=== PATIENT | male | born 1940 | race Caucasian/White ===

== ENCOUNTER 2019-05-09 14:22 | Inpatient (IN) | payer MEDICARE, BC ==
[~2019-05-09] VITALS: Ht 175.3 cm; Wt 87.1 kg
[2019-05-09 17:01] VITALS: BP 155/77
[2019-05-09] MEDS ORDERED: FLAX10003 PO (17:26)
[2019-05-09] MEDS ORDERED: LISI-607 PO (17:26)
[2019-05-09] MEDS ORDERED: GLIM2TAB2 PO (17:26)
[2019-05-09] MEDS ORDERED: VIT1CAPS44 PO (17:26)
[2019-05-09] MEDS ORDERED: CHOL400D16 PO (17:26)
[2019-05-09] MEDS ORDERED: MULT-1169 PO (17:26)
[2019-05-09] MEDS ORDERED: UBID100C13 PO (17:26)
[2019-05-09] MEDS ORDERED: RED600TA PO (17:26)
[2019-05-09] MEDS ORDERED: METF-440 PO (17:26)
[2019-05-09] MEDS ORDERED: AMLO5TAB9 PO (17:26)
[2019-05-09] MEDS ORDERED: ASPI325T39 PO (17:26)
[2019-05-09] MEDS ORDERED: DEXTROSE 50% 50 ML DISP.SYRIN IV PRN (17:45)
--- NOTE | 2019-05-09 19:30 | NUR ---
PATIENT RECEIVED IN BED. ALERT AND ORIENTED X 2-3. CONFUSED AND FORGETFUL. NO C/O PAIN OR SOB AT THIS TIME. CONTACTED MD HEAD FOR INCREASED BP OF 165/90. MD HAVE NO NEW ORDERS AT THIS TIME. MONITOR FOR Q4H. RASH OF LEFT ROA NOTED, AN WOUND CONSULT ORDERED. CALL LIGHT AND FREQUENTLY USED TIMES WITHIN REACH. WILL CONTINUE MONITOR.
[2019-05-09 19:53] VITALS: BP 165/90
[2019-05-09] MEDS: INSULIN REGULAR, HUMAN 300 UNIT/3 ML VIAL SQ PRN (20:58)
[2019-05-09] MEDS: BLOOD SUGAR DIAGNOSTIC 1 EACH STRIP VI SCH (21:00)
[2019-05-09 23:36] VITALS: BP 162/75
[2019-05-10 04:55] VITALS: BP 150/76
[2019-05-10] MEDS: BLOOD SUGAR DIAGNOSTIC 1 EACH STRIP VI SCH ×4 (06:31→21:09)
--- NOTE | 2019-05-10 06:32 | NUR ---
BP elevated,but stable during this shift. Will endorse to oncoming shift accordingly.
[2019-05-10 07:57] VITALS: BP 124/71
[2019-05-10] MEDS: CHOLECALCIFEROL 1,000 UNIT TABLET PO SCH (09:47)
[2019-05-10] MEDS: AMLODIPINE 5 MG TABLET PO SCH (09:47)
[2019-05-10] MEDS: METFORMIN HCL 500 MG TABLET PO SCH ×2 (09:47→18:51)
[2019-05-10] MEDS: MULTIVIT, IRON, MIN NO. 8, FA TABLET PO SCH (09:48)
[2019-05-10] MEDS: GLIMEPIRIDE 2 MG TABLET PO SCH ×2 (09:48→18:49)
[2019-05-10] MEDS: LISINOPRIL 5 MG TABLET PO SCH (09:48)
[2019-05-10] MEDS: ASPIRIN 325 MG TABLET PO SCH (09:48)
--- NOTE | 2019-05-10 12:07 | NUR ---
WOUND CARE CONSULT: PT PRESENTS WITH DRY SKIN TO LOWER LEGS, DRY SCRATCH TO RT LOWER LEG AND RESOLVED RASH TO LEFT BUTTOCK, PRESENT ON ADMISSION. PT IS INCONTINENT AT TIMES. RECOMMENDATIONS MADE FOR SKIN PROTECTION AND CARE. DISCUSSED WITH NURSING STAFF. WILL SEE PRN. DUQUE IN AGREEMENT WITH PLAN OF CARE. CURRENT CRISTÓBAL SCORE IS 14. Addendum: 05/10/19 at 1210 by LYN GUERRERO RN Amended: Links added.
[2019-05-10 15:55] VITALS: BP 94/19
--- NOTE | 2019-05-10 15:57 | NUR ---
INTERDISCIPLINARY TEAM CONFERENCE
[2019-05-10] MEDS: INSULIN REGULAR, HUMAN 300 UNIT/3 ML VIAL SQ PRN (18:51)
[2019-05-10] MEDS: MINERAL OIL/PETROLATUM,WHITE 57 GM TUBE TOP SCH (18:54)
--- NOTE | 2019-05-10 19:40 | NUR ---
Patient received in bed, AAO x3. Not in acute distress or SOB. Able to make needs known. On room air. VS stable. No complain of pain at this time. Physical assessment done. Fall prevention observed. Safety measures maintained. Bed in low and lock position, alarm on, side rails up x2 for safety. Educated patient to use call light. Call light and frequently used items within reach. Continue to monitor.
[2019-05-10 22:00] VITALS: BP 111/71
--- NOTE | 2019-05-11 04:47 | NUR ---
Patient was stable during the shift and had a good sleep last night. Not in acute distress or SOB. On room air. VS checked, stable. No complain of pain. Accucheck @2100 BS: 100, no needed for coverage by insulin based on sliding scale. All needs attended promptly. Physical assessment done. Fall prevention observed. Safety measures maintained. Bed in low and lock position, alarm on, side rails up x2 for safety. Call light and frequently used items within reach. Continue to monitor and will endorse to the day shift nurse accordingly.
[2019-05-11 05:50] VITALS: BP 121/71
[2019-05-11] MEDS: BLOOD SUGAR DIAGNOSTIC 1 EACH STRIP VI SCH ×4 (06:44→20:40)
[2019-05-11 07:48] LABS: CARBON DIOXIDE 27 mmol/L (21-32); CHLORIDE 103 mmol/L (98-107); CREATININE 1.1 mg/dL (0.6-1.3); GLUCOSE 110 mg/dL (74-106); POTASSIUM 3.6 mmol/L (3.5-5.1); UREA NITROGEN, BLOOD 22 mg/dL (7-18)
[2019-05-11 08:00] VITALS: BP 151/71
[2019-05-11] MEDS: GLIMEPIRIDE 2 MG TABLET PO SCH ×2 (09:38→17:16)
[2019-05-11] MEDS: METFORMIN HCL 500 MG TABLET PO SCH ×2 (09:38→17:16)
[2019-05-11] MEDS: CHOLECALCIFEROL 1,000 UNIT TABLET PO SCH (09:38)
[2019-05-11] MEDS: AMLODIPINE 5 MG TABLET PO SCH (09:38)
[2019-05-11] MEDS: LISINOPRIL 5 MG TABLET PO SCH (09:39)
[2019-05-11] MEDS: MULTIVIT, IRON, MIN NO. 8, FA TABLET PO SCH (09:39)
[2019-05-11] MEDS: ASPIRIN 325 MG TABLET PO SCH (09:40)
[2019-05-11] MEDS: MINERAL OIL/PETROLATUM,WHITE 57 GM TUBE TOP SCH (09:40)
[2019-05-11 16:48] VITALS: BP 116/64
[2019-05-11 19:38] VITALS: BP 140/72
[2019-05-11] MEDS: INSULIN REGULAR, HUMAN 300 UNIT/3 ML VIAL SQ PRN (20:37)
[2019-05-12 04:58] VITALS: BP 142/76
--- NOTE | 2019-05-12 05:13 | NUR ---
Patient was stable during the shift and had a good sleep last night. Not in acute distress or SOB. On room air. VS checked, stable. No complain of pain. Accucheck @2100 BS: 150, covered by 2 units insulin based on sliding scale. All needs attended promptly. Physical assessment done. Fall prevention observed. Safety measures maintained. Bed in low and lock position, alarm on, side rails up x2 for safety. Call light and frequently used items within reach. Continue to monitor and will endorse to the day shift nurse accordingly.
[2019-05-12] MEDS: BLOOD SUGAR DIAGNOSTIC 1 EACH STRIP VI SCH ×4 (06:39→20:04)
[2019-05-12 08:43] VITALS: BP 121/68
[2019-05-12] MEDS: CHOLECALCIFEROL 1,000 UNIT TABLET PO SCH (08:57)
[2019-05-12] MEDS: AMLODIPINE 5 MG TABLET PO SCH (08:57)
[2019-05-12] MEDS: METFORMIN HCL 500 MG TABLET PO SCH ×2 (08:57→17:08)
[2019-05-12] MEDS: GLIMEPIRIDE 2 MG TABLET PO SCH ×2 (08:57→17:08)
[2019-05-12] MEDS: LISINOPRIL 10 MG TABLET PO SCH (08:58)
[2019-05-12] MEDS: MULTIVIT, IRON, MIN NO. 8, FA TABLET PO SCH (08:58)
[2019-05-12] MEDS ORDERED: LISINOPRIL 5 MG TABLET PO SCH (09:00)
[2019-05-12] MEDS: MINERAL OIL/PETROLATUM,WHITE 57 GM TUBE TOP SCH (09:02)
[2019-05-12] MEDS: ASPIRIN 325 MG TABLET PO SCH (09:03)
--- NOTE | 2019-05-12 10:33 | NUR ---
INDIVIDUALIZE OVERALL PLAN OF CARE
[2019-05-12] MEDS: INSULIN REGULAR, HUMAN 300 UNIT/3 ML VIAL SQ PRN ×2 (11:43→20:03)
[2019-05-12 16:57] VITALS: BP 159/88
--- NOTE | 2019-05-12 19:38 | NUR ---
Patient received in bed, AAO x3, sometimes forgetful. Not in acute distress or SOB. Able to make needs known. On room air. VS stable. No complain of pain at this time. Physical assessment done. Fall prevention observed. Safety measures maintained. Bed in low and lock position, alarm on, side rails up x2 for safety. Educated patient to use call light. Call light and frequently used items within reach. Continue to monitor.
[2019-05-12 21:15] VITALS: BP 130/73
[2019-05-13 04:22] VITALS: BP 138/76
--- NOTE | 2019-05-13 04:28 | NUR ---
Patient was stable during the shift and had a good sleep last night. Not in acute distress or SOB. On room air. VS checked, stable. No complain of pain. Accucheck @2100 BS: 134, covered by 2 units insulin based on sliding scale. All needs attended promptly. Physical assessment done. Fall prevention observed. Safety measures maintained. Bed in low and lock position, alarm on, side rails up x2 for safety. Call light and frequently used items within reach. Continue to monitor and will endorse to the day shift nurse accordingly.
[2019-05-13] MEDS: BLOOD SUGAR DIAGNOSTIC 1 EACH STRIP VI SCH ×4 (06:30→21:02)
--- NOTE | 2019-05-13 07:46 | NUR ---
patient is in bed, asleep, no distress noted
[2019-05-13 08:00] VITALS: BP 124/66
[2019-05-13] MEDS: CHOLECALCIFEROL 1,000 UNIT TABLET PO SCH (08:29)
[2019-05-13] MEDS: METFORMIN HCL 500 MG TABLET PO SCH ×2 (08:29→17:25)
[2019-05-13] MEDS: GLIMEPIRIDE 2 MG TABLET PO SCH ×2 (08:29→17:25)
[2019-05-13] MEDS: MULTIVIT, IRON, MIN NO. 8, FA TABLET PO SCH (08:30)
[2019-05-13] MEDS: AMLODIPINE 5 MG TABLET PO SCH (08:30)
[2019-05-13] MEDS: ASPIRIN 325 MG TABLET PO SCH (08:30)
[2019-05-13] MEDS: LISINOPRIL 10 MG TABLET PO SCH (08:31)
[2019-05-13] MEDS: MINERAL OIL/PETROLATUM,WHITE 57 GM TUBE TOP SCH (08:32)
[2019-05-13] MEDS: Z GUARD REMEDY PASTE 57 GM TUBE TOP PRN (08:32)
[2019-05-13] MEDS: INSULIN REGULAR, HUMAN 300 UNIT/3 ML VIAL SQ PRN (12:30)
[2019-05-13 16:23] VITALS: BP 111/68
--- NOTE | 2019-05-13 19:26 | NUR ---
patient in bed, no changes noted during day, patient participated in PT, OT services, tolerated well
[2019-05-13 20:32] VITALS: BP 150/81
--- NOTE | 2019-05-14 04:20 | NUR ---
bedrest maintained. aaox3-4 compliant with meds.needs attended. VSS, Accucheck @ 2100 was 95. HS snacks given. Will monitor.Due meds given as scheduled. Incontinent of bowel and bladder. Kept clean and dry. Needs attended. Fall precautions maintained.
[2019-05-14 05:57] VITALS: BP 156/78
[2019-05-14] MEDS: BLOOD SUGAR DIAGNOSTIC 1 EACH STRIP VI SCH ×4 (06:38→20:34)
[2019-05-14 07:50] VITALS: BP 133/70
[2019-05-14] MEDS: GLIMEPIRIDE 2 MG TABLET PO SCH ×2 (08:23→16:10)
[2019-05-14] MEDS: METFORMIN HCL 500 MG TABLET PO SCH ×2 (08:23→16:10)
[2019-05-14] MEDS: AMLODIPINE 5 MG TABLET PO SCH (08:23)
[2019-05-14] MEDS: MULTIVIT, IRON, MIN NO. 8, FA TABLET PO SCH (08:23)
[2019-05-14] MEDS: ASPIRIN 325 MG TABLET PO SCH (08:23)
[2019-05-14] MEDS: LISINOPRIL 10 MG TABLET PO SCH (08:23)
[2019-05-14] MEDS: CHOLECALCIFEROL 1,000 UNIT TABLET PO SCH (08:24)
[2019-05-14] MEDS: MINERAL OIL/PETROLATUM,WHITE 57 GM TUBE TOP SCH (08:24)
[2019-05-14] MEDS: INSULIN REGULAR, HUMAN 300 UNIT/3 ML VIAL SQ PRN ×2 (11:24→20:35)
--- NOTE | 2019-05-14 14:16 | NUR ---
Patient blood sugar 226 before lunch. sliding insulin 4units humulin R given. aware. advise if surfacing machine operator can adjust diet. Government Relations Analyst aware. Change diet from CCHO 60gm to 45gm diet. Patient no complaint of pain/discomfort noted. will continue monitor
--- NOTE | 2019-05-14 14:27 | NUR ---
Patient requesting up on bed to wheelchair during meals. Up to bathroom for BM and urine.
[2019-05-14 15:46] VITALS: BP 116/69
[2019-05-14 20:11] VITALS: BP 145/83
--- NOTE | 2019-05-14 20:47 | NUR ---
Received pt resting in bed. AAO x2-3. No acute distress noted. Denies pain/ discomfort. Blood sugar of 198, insulin coverage given as ordered. Safety measures maintained. Call light and personal belongings within reach. Will continue to monitor.
[2019-05-15 06:11] VITALS: BP 153/78
[2019-05-15] MEDS: BLOOD SUGAR DIAGNOSTIC 1 EACH STRIP VI SCH ×4 (06:43→20:57)
--- NOTE | 2019-05-15 07:30 | NUR ---
Received patient in room awake in NO acute distress. Pt. is stable. No distress noted. S&Ox 2-3 with episodes of forgetfulness noted. Call light at bed side, safety measures in place and will continue with care.
[2019-05-15 07:35] LABS: BASOPHILS % (AUTO) 0.5 % (0.0-2.0); EOSINOPHILS # (AUTO) 0.1 K/uL (0.0-0.7); EOSINOPHILS % (AUTO) 1.8 % (0.0-7.0); HEMATOCRIT 43.9 % (36.7-47.1); LYMPHOCYTES # (AUTO) 2.4 K/uL (20.0-40.0); LYMPHOCYTES % (AUTO) 33.5 % (20.5-51.5); MEAN CORPUSCULAR HEMOGLOBIN 30.3 uug (23.8-33.4); MEAN CORPUSCULAR HGB CONC 34 g/dL (32.5-36.3); MEAN CORPUSCULAR VOLUME 88.8 fL (73.0-96.2); MONOCYTES # (AUTO) 0.7 K/uL (2.0-10.0); MONOCYTES % (AUTO) 9.9 % (0.0-11.0); NEUTROPHILS # (AUTO) 3.8 K/uL (1.8-8.9); NEUTROPHILS % (AUTO) 54.3 % (38.5-71.5); PLATELET COUNT (AUTO) 303 K/uL (152-348); RED BLOOD CELL COUNT(AUTO) 4.94 MIL/uL (4.06-5.63); WHITE BLOOD COUNT (AUTO) 7.1 K/uL (3.6-10.2)
[2019-05-15 07:56] LABS: THYROID STIMULATING HORMONE 7.391 mIU/mL (0.358-3.740)
[2019-05-15 08:00] VITALS: BP 117/71
[2019-05-15 08:18] LABS: ALANINE AMINOTRANSFERASE 29 U/L (16-63); ALKALINE PHOSPHATASE 74 U/L (50-136); ASPARTATE AMINOTRANSFERASE 18 U/L (15-37); BILIRUBIN,TOTAL 0.5 mg/dL (0.2-1.0); CARBON DIOXIDE 26 mmol/L (21-32); CHLORIDE 104 mmol/L (98-107); CHOLESTEROL 192 mg/dL (<200); CREATININE 0.9 mg/dL (0.6-1.3); GLUCOSE 92 mg/dL (74-106); HDL CHOLESTEROL 40 mg/dL (40-60); MAGNESIUM 2.1 mg/dL (1.8-2.4); PHOSPHOROUS 3.4 mg/dL (2.5-4.9); POTASSIUM 3.8 mmol/L (3.5-5.1); TOTAL PROTEIN, SERUM 6.8 g/dL (6.4-8.2); TRIGLYCERIDES 139 MG/DL (30-150); UREA NITROGEN, BLOOD 16 mg/dL (7-18)
[2019-05-15] MEDS: CHOLECALCIFEROL 1,000 UNIT TABLET PO SCH (08:56)
[2019-05-15] MEDS: METFORMIN HCL 500 MG TABLET PO SCH ×2 (08:56→17:15)
[2019-05-15] MEDS: GLIMEPIRIDE 2 MG TABLET PO SCH ×2 (08:56→17:15)
[2019-05-15] MEDS: MULTIVIT, IRON, MIN NO. 8, FA TABLET PO SCH (08:56)
[2019-05-15] MEDS: ASPIRIN 325 MG TABLET PO SCH (08:56)
[2019-05-15] MEDS: LISINOPRIL 10 MG TABLET PO SCH (08:57)
[2019-05-15] MEDS: AMLODIPINE 5 MG TABLET PO SCH (08:59)
[2019-05-15] MEDS: MINERAL OIL/PETROLATUM,WHITE 57 GM TUBE TOP SCH (09:00)
--- NOTE | 2019-05-15 10:00 | NUR ---
pt offered shower during PT session d/t noted excess dry skin however pt refused at this time. Will inform OT for attempt at a later time if pt agreeable.
[2019-05-15 16:00] VITALS: BP 137/75
[2019-05-15] MEDS: INSULIN REGULAR, HUMAN 300 UNIT/3 ML VIAL SQ PRN (17:14)
--- NOTE | 2019-05-15 19:14 | NUR ---
Patient in stable condition, Vital signs taken and stable. Due medications administered as ordered and scheduled. Blood sugar checks done and administered insulin per sliding scale and tolerated well. Skin kept clean and dry. Needs attended, safety measures in place, call light left at bed side, endorsed to next shift and will continue with care.
--- NOTE | 2019-05-15 19:35 | NUR ---
Patient received in bed, AAO x3, sometimes forgetful. Not in acute distress or SOB. Able to make needs known. On room air. No complain of pain at this time. Physical assessment done. Fall prevention observed. Safety measures maintained. Bed in low and lock position, alarm on, side rails up x2 for safety. Educated patient to use call light. Call light and frequently used items within reach. Continue to monitor.
[2019-05-15 19:39] VITALS: BP 151/73
[2019-05-15] MEDS: CLONIDINE HCL 0.1 MG TABLET PO SCH (21:17)
--- NOTE | 2019-05-15 21:30 | NUR ---
Patient developed high BP: 167/89, HR: 82. No other symptoms presented. No PRN medication for BP. Contacted [facility] on-call. Received order of Clonidine 0.1 mg Q6HPRN for SBP> 160. Medication administered. Continue to monitor and will recheck the BP in half an hour.
--- NOTE | 2019-05-15 22:10 | NUR ---
Went to the patient' s room to recheck the BP, but patient was sleeping. Continue to monitor.
--- NOTE | 2019-05-16 04:58 | NUR ---
Patient was stable during the shift and had a good sleep last night. Not in acute distress or SOB. On room air. VS checked, stable. No complain of pain. Accucheck @2099 BS: 137, covered by 2 units insulin based on sliding scale. Emptied urinal multiple times. All needs attended promptly. Physical assessment done. Fall prevention observed. Safety measures maintained. Bed in low and lock position, alarm on, side rails up x2 for safety. Call light and frequently used items within reach. Continue to monitor and will endorse to the day shift nurse accordingly. Addendum: 05/16/19 at 0721 by KHADIJAH OZUNA RN Accucheck @2099 BS: 92 with no coverage. @629 BS: 88.
[2019-05-16 05:00] VITALS: BP 129/70
[2019-05-16] MEDS: BLOOD SUGAR DIAGNOSTIC 1 EACH STRIP VI SCH ×5 (06:55→20:55)
--- NOTE | 2019-05-16 07:37 | NUR ---
patient is in sleep, no distress noted, no sob, respirations are even and nonlabored
[2019-05-16 07:57] VITALS: BP 130/70
[2019-05-16] MEDS: CHOLECALCIFEROL 1,000 UNIT TABLET PO SCH (08:14)
[2019-05-16] MEDS: GLIMEPIRIDE 2 MG TABLET PO SCH ×2 (08:15→17:00)
[2019-05-16] MEDS: AMLODIPINE 5 MG TABLET PO SCH (08:15)
[2019-05-16] MEDS: ASPIRIN 325 MG TABLET PO SCH (08:15)
[2019-05-16] MEDS: METFORMIN HCL 500 MG TABLET PO SCH ×2 (08:15→17:00)
[2019-05-16] MEDS: LISINOPRIL 10 MG TABLET PO SCH (08:16)
[2019-05-16] MEDS: MULTIVIT, IRON, MIN NO. 8, FA TABLET PO SCH (08:16)
[2019-05-16] MEDS: MINERAL OIL/PETROLATUM,WHITE 57 GM TUBE TOP SCH (08:17)
[2019-05-16] MEDS: Z GUARD REMEDY PASTE 57 GM TUBE TOP PRN (08:43)
--- NOTE | 2019-05-16 10:01 | NUR ---
TSH reported to Dr Frankel
[2019-05-16] MEDS: INSULIN REGULAR, HUMAN 300 UNIT/3 ML VIAL SQ PRN ×2 (12:08→20:58)
--- NOTE | 2019-05-16 15:30 | NUR ---
pt returned BTB d/t fatigue post PT session. Possible need to incorporate rest in bed in between sitting sessions as pt was up in chair since 8am this morning. pt was assisted to bed shortly before PT session and upon PT session pt highly fatigued. Nursing to monitor pt in between therapy sessions and assist with positional changes as needed/appropriate.
[2019-05-16 19:40] VITALS: BP 146/76
--- NOTE | 2019-05-17 04:14 | NUR ---
Patient received in bed, AAO x2-3, sometimes forgetful. Not in acute distress or SOB. Able to make needs known. On room air. VS checked, stable. No complain of pain at this time. Patient was stable during the shift and had a good sleep last night. Accucheck @2100 BS: 140, covered by 2 units insulin based on sliding scale. All needs attended promptly. Physical assessment done. Fall prevention observed. Safety measures maintained. Bed in low and lock position, alarm on, side rails up x2 for safety. Call light and frequently used items within reach. Continue to monitor and will endorse to the day shift nurse accordingly.
[2019-05-17] MEDS: CLONIDINE HCL 0.1 MG TABLET PO SCH (05:41)
[2019-05-17 05:55] VITALS: BP 174/93
[2019-05-17] MEDS: BLOOD SUGAR DIAGNOSTIC 1 EACH STRIP VI SCH ×4 (06:40→20:40)
--- NOTE | 2019-05-17 07:11 | NUR ---
Patient developed high BP: 174/93, HR: 78. No other symptoms presented. No PRN medication for BP. Contacted [facility] on-call. Received order of Clonidine 0.1 mg Q6HPRN for SBP> 160. Medication administered. Recheck the BP:106/61. will endorse to to the day shift nurse.
[2019-05-17] MEDS: ASPIRIN 325 MG TABLET PO SCH (09:27)
[2019-05-17] MEDS: GLIMEPIRIDE 2 MG TABLET PO SCH ×2 (09:27→17:43)
[2019-05-17] MEDS: MULTIVIT, IRON, MIN NO. 8, FA TABLET PO SCH (09:27)
[2019-05-17] MEDS: LISINOPRIL 10 MG TABLET PO SCH (09:27)
[2019-05-17] MEDS: CHOLECALCIFEROL 1,000 UNIT TABLET PO SCH (09:28)
[2019-05-17] MEDS: AMLODIPINE 5 MG TABLET PO SCH (09:28)
[2019-05-17] MEDS: MINERAL OIL/PETROLATUM,WHITE 57 GM TUBE TOP SCH (09:29)
[2019-05-17] MEDS: METFORMIN HCL 500 MG TABLET PO SCH ×2 (10:02→17:43)
[2019-05-17] MEDS: INSULIN REGULAR, HUMAN 300 UNIT/3 ML VIAL SQ PRN (12:07)
[2019-05-17 15:55] VITALS: BP 94/52
--- NOTE | 2019-05-17 16:22 | NUR ---
INTERDISCIPLINARY TEAM CONFERENCE
--- NOTE | 2019-05-17 19:20 | NUR ---
Patient in stable condition; In No acute distress. No episodes of hypertension noted. VS stable. Needs met. safety measures in place, call light left at bed side, end of shift report given and will continue with care.
[2019-05-17 20:34] VITALS: BP 159/86
--- NOTE | 2019-05-18 04:23 | NUR ---
No acute events overnight, pt currently sleeping, denies any pain. No fever, no restlessness. bed alarm is on, call light within reach
[2019-05-18 05:53] VITALS: BP 134/70
[2019-05-18] MEDS: BLOOD SUGAR DIAGNOSTIC 1 EACH STRIP VI SCH ×3 (06:55→16:52)
[2019-05-18 07:30] VITALS: BP 135/82
--- NOTE | 2019-05-18 07:50 | NUR ---
Patient awake in bed, in NO acute distress. No complains of pain at this time. Call light left at bed side and will continue with care.
[2019-05-18] MEDS: MULTIVIT, IRON, MIN NO. 8, FA TABLET PO SCH (09:12)
[2019-05-18] MEDS: ASPIRIN 325 MG TABLET PO SCH (09:12)
[2019-05-18] MEDS: GLIMEPIRIDE 2 MG TABLET PO SCH ×2 (09:12→17:48)
[2019-05-18] MEDS: METFORMIN HCL 500 MG TABLET PO SCH ×2 (09:13→17:48)
[2019-05-18] MEDS: AMLODIPINE 5 MG TABLET PO SCH (09:13)
[2019-05-18] MEDS: CHOLECALCIFEROL 1,000 UNIT TABLET PO SCH (09:13)
[2019-05-18] MEDS: LISINOPRIL 10 MG TABLET PO SCH (09:13)
[2019-05-18] MEDS: MINERAL OIL/PETROLATUM,WHITE 57 GM TUBE TOP SCH (09:14)
[2019-05-18] MEDS: INSULIN REGULAR, HUMAN 300 UNIT/3 ML VIAL SQ PRN (12:28)
[2019-05-18 16:00] VITALS: BP 156/69
--- NOTE | 2019-05-18 19:25 | NUR ---
All due medications administered as ordered and scheduled. Blood sugar checked and stable for patient. No new change of condition noted. Needs met. safety needs attended, was here to visit and discussed care, and thanked for the care that was being provided. Call light left at bed side and will continue with care.
[2019-05-18 19:59] VITALS: BP 152/77
--- NOTE | 2019-05-18 22:24 | NUR ---
Received pt sitting in the wheelchair and watching tv. AAO x2-3. No acute distress noted. Denies pain/ discomfort. Pt is now back to bed. Safety measures maintained. Call light and personal belongings within reach. Will continue to monitor.
[2019-05-19 04:53] VITALS: BP 132/75
[2019-05-19 07:56] LABS: BASOPHILS % (AUTO) 0.7 % (0.0-2.0); EOSINOPHILS # (AUTO) 0.2 K/uL (0.0-0.7); EOSINOPHILS % (AUTO) 2.8 % (0.0-7.0); HEMATOCRIT 43.3 % (36.7-47.1); HEMOGLOBIN 14.6 g/dL (12.5-16.3); MEAN CORPUSCULAR HEMOGLOBIN 30.6 uug (23.8-33.4); MEAN CORPUSCULAR HGB CONC 34 g/dL (32.5-36.3); MEAN CORPUSCULAR VOLUME 90.7 fL (73.0-96.2); MONOCYTES # (AUTO) 0.6 K/uL (2.0-10.0); MONOCYTES % (AUTO) 8.9 % (0.0-11.0); NEUTROPHILS # (AUTO) 3.8 K/uL (1.8-8.9); NEUTROPHILS % (AUTO) 57.6 % (38.5-71.5); PLATELET COUNT (AUTO) 287 K/uL (152-348); RED BLOOD CELL COUNT(AUTO) 4.77 MIL/uL (4.06-5.63); WHITE BLOOD COUNT (AUTO) 6.7 K/uL (3.6-10.2)
[2019-05-19 08:00] VITALS: BP 125/75
[2019-05-19 08:10] LABS: ALANINE AMINOTRANSFERASE 77 U/L (16-63); ALKALINE PHOSPHATASE 81 U/L (50-136); ASPARTATE AMINOTRANSFERASE 45 U/L (15-37); BILIRUBIN,TOTAL 0.3 mg/dL (0.2-1.0); CARBON DIOXIDE 25 mmol/L (21-32); CHLORIDE 103 mmol/L (98-107); GLUCOSE 96 mg/dL (74-106); MAGNESIUM 1.8 mg/dL (1.8-2.4); PHOSPHOROUS 4.1 mg/dL (2.5-4.9); POTASSIUM 3.7 mmol/L (3.5-5.1); TOTAL PROTEIN, SERUM 6.5 g/dL (6.4-8.2); UREA NITROGEN, BLOOD 22 mg/dL (7-18)
[2019-05-19 08:18] LABS: THYROID STIMULATING HORMONE 9.015 mIU/mL (0.358-3.740)
[2019-05-19] MEDS: ASPIRIN 325 MG TABLET PO SCH (08:41)
[2019-05-19] MEDS: CHOLECALCIFEROL 1,000 UNIT TABLET PO SCH (08:41)
[2019-05-19] MEDS: LISINOPRIL 10 MG TABLET PO SCH (08:42)
[2019-05-19] MEDS: METFORMIN HCL 500 MG TABLET PO SCH ×2 (08:42→16:21)
[2019-05-19] MEDS: MULTIVIT, IRON, MIN NO. 8, FA TABLET PO SCH (08:42)
[2019-05-19] MEDS: GLIMEPIRIDE 2 MG TABLET PO SCH ×2 (08:42→16:21)
[2019-05-19] MEDS: AMLODIPINE 5 MG TABLET PO SCH (08:42)
[2019-05-19] MEDS: MINERAL OIL/PETROLATUM,WHITE 57 GM TUBE TOP SCH (08:43)
--- NOTE | 2019-05-19 09:46 | NUR ---
Patient noted sitting up in bed, took all AM medications, no complaints of pain, no signs of distress noted, call light in reach, bed locked and in lowest position, all needs met
[2019-05-19 17:59] VITALS: BP 129/75
--- NOTE | 2019-05-19 20:42 | NUR ---
Received pt resting in bed. AAO x2-3. No acute distress noted. Denies pain/ discomfort. Safety measures maintained. Call light and personal belongings within reach. Will continue to monitor.
[2019-05-19 21:48] VITALS: BP 134/81
[2019-05-20 04:00] VITALS: BP 135/74
[2019-05-20] MEDS: LEVOTHYROXINE SODIUM 25 MCG TABLET PO SCH (06:00)
[2019-05-20] MEDS: ASPIRIN 325 MG TABLET PO SCH (08:02)
[2019-05-20] MEDS: CHOLECALCIFEROL 1,000 UNIT TABLET PO SCH (08:02)
[2019-05-20] MEDS: METFORMIN HCL 500 MG TABLET PO SCH ×2 (08:02→16:37)
[2019-05-20] MEDS: LISINOPRIL 10 MG TABLET PO SCH (08:02)
[2019-05-20] MEDS: AMLODIPINE 5 MG TABLET PO SCH (08:02)
[2019-05-20] MEDS: GLIMEPIRIDE 2 MG TABLET PO SCH ×2 (08:02→16:37)
[2019-05-20] MEDS: MULTIVIT, IRON, MIN NO. 8, FA TABLET PO SCH (08:02)
[2019-05-20] MEDS: MINERAL OIL/PETROLATUM,WHITE 57 GM TUBE TOP SCH (08:03)
[2019-05-20 10:00] VITALS: BP 154/78
[2019-05-20 17:47] VITALS: BP 147/81
[2019-05-20 19:53] VITALS: BP 133/76
[2019-05-21 06:26] VITALS: BP 134/71
[2019-05-21] MEDS: LEVOTHYROXINE SODIUM 25 MCG TABLET PO SCH (06:45)
--- NOTE | 2019-05-21 07:40 | NUR ---
Received Pt. in bed awake, Pt. is A&O x 2-3, able to express needs at times. No acute distress noted. Vital signs taken and stable. Call light left at bed side and will continue with care.
[2019-05-21 08:00] VITALS: BP 140/68
[2019-05-21] MEDS: GLIMEPIRIDE 2 MG TABLET PO SCH ×2 (08:48→17:32)
[2019-05-21] MEDS: CHOLECALCIFEROL 1,000 UNIT TABLET PO SCH (08:48)
[2019-05-21] MEDS: ASPIRIN 325 MG TABLET PO SCH (08:48)
[2019-05-21] MEDS: METFORMIN HCL 500 MG TABLET PO SCH ×2 (08:49→17:32)
[2019-05-21] MEDS: MULTIVIT, IRON, MIN NO. 8, FA TABLET PO SCH (08:49)
[2019-05-21] MEDS: AMLODIPINE 5 MG TABLET PO SCH (08:49)
[2019-05-21] MEDS: LISINOPRIL 10 MG TABLET PO SCH (08:49)
[2019-05-21] MEDS: MINERAL OIL/PETROLATUM,WHITE 57 GM TUBE TOP SCH (10:38)
[2019-05-21 16:27] VITALS: BP 113/70
[2019-05-21 19:46] VITALS: BP 133/73
--- NOTE | 2019-05-22 00:14 | NUR ---
Received patient laying in bed. No acute distress noted. Denies pain or SOB. A/O x 4. In room air. Safety initiated. Bed alarm on. Will closely monitor.
[2019-05-22 05:01] VITALS: BP 134/64
--- NOTE | 2019-05-22 05:40 | NUR ---
Patient slept t/o shift. Denies pain or SOB. Vital signs stable. No temperature. Safety and comfort measures maintained t/o shift. All meds given as ordered. All needs met.
[2019-05-22] MEDS: LEVOTHYROXINE SODIUM 25 MCG TABLET PO SCH (06:22)
[2019-05-22 07:44] VITALS: BP 133/64
[2019-05-22] MEDS: ASPIRIN 325 MG TABLET PO SCH (08:59)
[2019-05-22] MEDS: LISINOPRIL 10 MG TABLET PO SCH (09:00)
[2019-05-22] MEDS: AMLODIPINE 5 MG TABLET PO SCH (09:00)
[2019-05-22] MEDS: METFORMIN HCL 500 MG TABLET PO SCH ×2 (09:00→17:21)
[2019-05-22] MEDS: MULTIVIT, IRON, MIN NO. 8, FA TABLET PO SCH (09:00)
[2019-05-22] MEDS: GLIMEPIRIDE 2 MG TABLET PO SCH ×2 (09:01→17:21)
[2019-05-22] MEDS: CHOLECALCIFEROL 1,000 UNIT TABLET PO SCH (09:01)
[2019-05-22] MEDS: MINERAL OIL/PETROLATUM,WHITE 57 GM TUBE TOP SCH (09:04)
[2019-05-22 15:37] VITALS: BP 108/58
--- NOTE | 2019-05-22 18:47 | NUR ---
Patient in stable condition, NO acute distress noted. Breathing even and unlabored. Vital signs stable. NO s/sx of hypo/hyperglycemia noted. Patient seen by Dr. Parsons and Venus Lott, EDDY with no new orders. discussed regarding discharge orders and informed will F/U with complex case manager in the morning. All other needs attended, safety measures in place. call light left at bed side and will continue with care.
--- NOTE | 2019-05-22 19:00 | NUR ---
PATIENT ALERT PATIENT NO COMPLAIN OF PAIN NOR DISCOMFORT, PATIENT USES URINAL FOR BLADDER ELIMINATION, KEPT CLEAN AND DRY, CALL LIGHT WITHIN REACH. CONT TO MONITOR.
[2019-05-22 20:41] VITALS: BP 159/72
[2019-05-23 06:03] VITALS: BP 130/72
[2019-05-23] MEDS: LEVOTHYROXINE SODIUM 25 MCG TABLET PO SCH (06:06)
--- NOTE | 2019-05-23 06:40 | NUR ---
PATIENT ALERT ABLE TO MAKE NEEDS KNOWN, NO SOB NO CHEST PAIN. PATIENT REQUEST TOTAL ASSIST WITH ADL'S. PATIENT HAS NO COMPLAIN OF PAIN AT THIS TIME. KEPT CLEAN AND DRY CONT TO MONITOR.
[2019-05-23 07:55] VITALS: BP 147/79
[2019-05-23] MEDS: ASPIRIN 325 MG TABLET PO SCH (08:53)
[2019-05-23] MEDS: LISINOPRIL 10 MG TABLET PO SCH (08:54)
[2019-05-23] MEDS: CHOLECALCIFEROL 1,000 UNIT TABLET PO SCH (08:54)
[2019-05-23] MEDS: MULTIVIT, IRON, MIN NO. 8, FA TABLET PO SCH (08:54)
[2019-05-23] MEDS: GLIMEPIRIDE 2 MG TABLET PO SCH ×2 (08:54→17:34)
[2019-05-23] MEDS: AMLODIPINE 5 MG TABLET PO SCH (08:54)
[2019-05-23] MEDS: METFORMIN HCL 500 MG TABLET PO SCH ×2 (08:55→17:34)
[2019-05-23] MEDS: MINERAL OIL/PETROLATUM,WHITE 57 GM TUBE TOP SCH (08:55)
[2019-05-23 15:59] VITALS: BP 133/70
--- NOTE | 2019-05-23 19:30 | NUR ---
Patient alert and oriented x 2-3. Periods of forgetfulness. No C/O pain or SOB at this time. Assisted with night time ADLs. Side rails up bilaterally. Call light and frequently used items within reach. Will continue to monitor.
--- NOTE | 2019-05-23 19:59 | NUR ---
Patient A&O, in stable condition. NO acute distress noted. All due medications administered as ordered and scheduled and tolerated well, Pt. visited by WIDE LOAD ESCORT with an order to check blood sugar x1 AC breakfast, carried out order. All other needs attended, safety measures in place, call light left at bed side, endorsed to next shift and will continue with care.
[2019-05-23 20:12] VITALS: BP 149/81
[2019-05-24] MEDS: LEVOTHYROXINE SODIUM 25 MCG TABLET PO SCH (06:28)
[2019-05-24] MEDS: BLOOD SUGAR DIAGNOSTIC 1 EACH STRIP VI SCH (06:31)
[2019-05-24 06:50] VITALS: BP 147/69
--- NOTE | 2019-05-24 07:45 | NUR ---
Received patient awake in bed. AAOx3. In no acute distress. Denies pain at this time. Safety measures implemented. Call light within reach. Will continue to monitor.
[2019-05-24] MEDS: METFORMIN HCL 500 MG TABLET PO SCH ×2 (09:00→17:40)
[2019-05-24] MEDS: ASPIRIN 325 MG TABLET PO SCH (09:00)
[2019-05-24] MEDS: LISINOPRIL 10 MG TABLET PO SCH (09:00)
[2019-05-24] MEDS: AMLODIPINE 5 MG TABLET PO SCH (09:00)
[2019-05-24] MEDS: CHOLECALCIFEROL 1,000 UNIT TABLET PO SCH (09:00)
[2019-05-24] MEDS: MULTIVIT, IRON, MIN NO. 8, FA TABLET PO SCH (09:00)
[2019-05-24] MEDS: MINERAL OIL/PETROLATUM,WHITE 57 GM TUBE TOP SCH (09:01)
[2019-05-24 09:02] VITALS: BP 153/78
[2019-05-24] MEDS: GLIMEPIRIDE 2 MG TABLET PO SCH ×2 (09:02→17:40)
[2019-05-24 15:46] VITALS: BP 124/61
--- NOTE | 2019-05-24 16:24 | NUR ---
INTERDISCIPLINARY TEAM CONFERENCE
--- NOTE | 2019-05-24 18:40 | NUR ---
No change in status. Compliant with care and medication. Vital signs stable. All needs met. Will endorse accordingly. Continue plan of care.
--- NOTE | 2019-05-24 19:30 | NUR ---
Patient alert and oriented x 2-3. Periods of forgetfulness. No C/O pain or SOB at this time. Assisted with night time ADLs. D/C photo of left buttock taken, with no rash noted. TMS still needs to be signed by MD. Side rails up bilaterally. Call light and frequently used items within reach. Will continue to monitor.
[2019-05-24 21:00] VITALS: BP 146/77
[2019-05-25 05:36] VITALS: BP 140/80
[2019-05-25] MEDS: LEVOTHYROXINE SODIUM 25 MCG TABLET PO SCH (06:15)
[2019-05-25] MEDS: BLOOD SUGAR DIAGNOSTIC 1 EACH STRIP VI SCH (06:35)
[2019-05-25 07:45] VITALS: BP 144/71
[2019-05-25] MEDS: GLIMEPIRIDE 2 MG TABLET PO SCH (08:19)
[2019-05-25] MEDS: CHOLECALCIFEROL 1,000 UNIT TABLET PO SCH (08:19)
[2019-05-25] MEDS: MULTIVIT, IRON, MIN NO. 8, FA TABLET PO SCH (08:19)
[2019-05-25] MEDS: ASPIRIN 325 MG TABLET PO SCH (08:19)
[2019-05-25] MEDS: METFORMIN HCL 500 MG TABLET PO SCH (08:19)
[2019-05-25] MEDS: AMLODIPINE 5 MG TABLET PO SCH (08:20)
[2019-05-25] MEDS: LISINOPRIL 10 MG TABLET PO SCH (08:20)
[2019-05-25] MEDS: MINERAL OIL/PETROLATUM,WHITE 57 GM TUBE TOP SCH (08:20)
--- NOTE | 2019-05-25 10:08 | NUR ---
Patient noted sitting up in wheelchair, no signs of distress noted, call light in reach, bed locked and in lowest position, all needs met at this time
[2019-05-25 15:00] VITALS: BP 141/74
--- NOTE | 2019-05-25 15:40 | NUR ---
Patient discharged at 1525 to home via ambulance service and gurney, no complaints of pain, no signs of distress noted, 141/74 B/P, 84 pulse, [facility] arranged by pillowcase folder, all belongings accounted for, discharge instructions given at this time, exit care provided,MD Parsons and EDDY Lott aware of patients discharge
== END 2019-05-25 15:20 | disposition home health service (06) | DRG 56 ==
PROVIDERS: ADMIT Physical Medicine & Rehabilitation Pain Medicine; ATTEND Physical Medicine & Rehabilitation Pain Medicine
DX: G20 Parkinson's disease (principal); G92 Toxic encephalopathy; D68.59 Other primary thrombophilia; E87.2 Acidosis; G91.2 (Idiopathic) normal pressure hydrocephalus; E11.9 Type 2 diabetes mellitus without complications; F02.80 Dementia in other diseases classified elsewhere, unspecified severity, without behavioral disturbance, psychotic disturbance, mood disturbance, and anxiety; R26.9 Unspecified abnormalities of gait and mobility; E03.9 Hypothyroidism, unspecified; E66.9 Obesity, unspecified; Z68.28 Body mass index [BMI] 28.0-28.9, adult; F01.50 Vascular dementia, unspecified severity, without behavioral disturbance, psychotic disturbance, mood disturbance, and anxiety; I10 Essential (primary) hypertension; R29.6 Repeated falls; Z79.890 Hormone replacement therapy; R06.02 Shortness of breath; E86.0 Dehydration; R53.1 Weakness
CPT/HCPCS: 36415; 70030-TC; 71045; 83735; 84100; 84443; 85025; J1815

== ENCOUNTER 2023-08-05 23:09 | Emergency (ER) | payer MEDICARE, BC ==
[~2023-08-05] VITALS: Ht 170.2 cm; Wt 81.6 kg
[~2023-08-05 23:09] MED LIST: AMLO-212 PO; ASPI325T39 PO; CHOL400D8 PO; FLAX10003 PO; GLIM2TAB31 PO; LISI-782 PO; METF-440 PO; MULT-1169 PO; RED600TA PO; UBID100C13 PO; VIT1CAPS44 PO
[2023-08-06 01:45] VITALS: BP 164/90; TEMP 97.5; O2SAT 99
== END 2023-08-06 01:46 | disposition home or self-care (01) ==
LOC: ER 23:11
DX: I10 Essential (primary) hypertension (principal); G20.A1 Parkinson's disease without dyskinesia, without mention of fluctuations; F03.90 Unspecified dementia, unspecified severity, without behavioral disturbance, psychotic disturbance, mood disturbance, and anxiety; Z79.82 Long term (current) use of aspirin; Z79.899 Other long term (current) drug therapy
CPT/HCPCS: A4606; A4663

== ENCOUNTER 2023-10-12 20:55 | Inpatient (IN) | payer MEDICARE, BC ==
[~2023-10-12] VITALS: Ht 167.6 cm; Wt 75.7 kg
[2023-10-12 20:35] VITALS: BP 152/68; TEMP 98.6; O2SAT 95
[2023-10-12] MEDS ORDERED: OLME1TAB90 PO (21:45)
[2023-10-12] MEDS ORDERED: SITA100T PO (21:45)
[2023-10-12] MEDS ORDERED: METR500T PO (21:45)
[2023-10-12] MEDS ORDERED: INSU3INS6 SQ (21:45)
[2023-10-12] MEDS ORDERED: DEXTROSE 50% 50 ML DISP.SYRIN IV PRN (22:15)
[2023-10-13 06:00] VITALS: BP 174/76; TEMP 98; O2SAT 96
[2023-10-13] MEDS: BLOOD SUGAR DIAGNOSTIC 1 EACH STRIP VI SCH (06:49)
[2023-10-13] MEDS: INSULIN REGULAR, HUMAN 300 UNIT/3 ML VIAL SQ PRN (07:38)
[2023-10-13] MEDS: LINAGLIPTIN 5 MG TABLET PO SCH (08:34)
[2023-10-13] MEDS: HYDROCHLOROTHIAZIDE 12.5 MG CAPSULE PO SCH (08:34)
[2023-10-13] MEDS: LOSARTAN POTASSIUM 50 MG TABLET PO SCH (08:35)
[2023-10-13] MEDS ORDERED: Medication Not On Formulary EA (Sitagliptin Phosphate (Januvia) 100 MG) PO SCH (09:00)
[2023-10-13] MEDS ORDERED: Medication Not On Formulary EA (Olmesartan/Hydrochlorothiazide (Olmesartan-Hctz 40-12.5 PO SCH (09:00)
[2023-10-13 17:22] VITALS: BP 111/69; TEMP 98.3; O2SAT 93
[2023-10-13 20:00] VITALS: BP 122/56; TEMP 97.6; O2SAT 95
[2023-10-13] MEDS: INSULIN REGULAR, HUMAN 300 UNITS/3 ML VIAL SQ PRN (20:52)
[2023-10-14 06:00] VITALS: BP 154/68; TEMP 98.5; O2SAT 96
[2023-10-14 11:52] VITALS: BP 121/61; TEMP 98.4; O2SAT 93
[2023-10-14 16:00] VITALS: BP 112/63; TEMP 98.3; O2SAT 96
[2023-10-14 20:30] VITALS: BP 140/58; TEMP 98.7
[2023-10-15 05:59] VITALS: BP 133/68; TEMP 98.7; O2SAT 95
[2023-10-15 08:00] VITALS: BP 145/63; TEMP 98.4; O2SAT 95
[2023-10-15 11:46] VITALS: BP 101/49; TEMP 97.9; O2SAT 95
[2023-10-15 16:00] VITALS: BP 117/54; TEMP 98.7; O2SAT 95
[2023-10-15 20:39] VITALS: BP 135/69; TEMP 98.2; O2SAT 96
[2023-10-16 04:38] VITALS: BP 145/76; TEMP 98.2; O2SAT 96
[2023-10-16 15:53] VITALS: BP 147/45; TEMP 98.3; O2SAT 97
[2023-10-16 20:11] VITALS: BP 140/70; TEMP 98; O2SAT 95
[2023-10-16 22:05] VITALS: BP 179/83; TEMP 98; O2SAT 95
[2023-10-16] MEDS: CLONIDINE HCL 0.1 MG TABLET PO PRN (22:13)
[2023-10-16 23:35] VITALS: BP 115/58; TEMP 98
[2023-10-17 04:12] VITALS: BP 135/68; TEMP 98.2; O2SAT 97
[2023-10-17 15:45] VITALS: BP 149/85; TEMP 97.6; O2SAT 94
[2023-10-17 20:00] VITALS: BP 154/76; TEMP 97.8; O2SAT 95
[2023-10-18 06:57] VITALS: BP 123/64; TEMP 98.1; O2SAT 97
[2023-10-18 16:00] VITALS: BP 163/84; TEMP 98.6; O2SAT 98
[2023-10-18 20:22] VITALS: BP 178/80; TEMP 98.2; O2SAT 97
[2023-10-19 04:55] VITALS: BP 142/65; TEMP 98.2; O2SAT 96
[2023-10-19 12:09] VITALS: BP 146/71; TEMP 97.5; O2SAT 97
[2023-10-19 16:00] VITALS: BP 136/60; TEMP 98.3; O2SAT 96
[2023-10-19 20:29] VITALS: BP 114/59; TEMP 97.9; O2SAT 95
[2023-10-20 04:43] VITALS: BP 134/65; TEMP 96.4; O2SAT 96
[2023-10-20 16:23] VITALS: BP 158/77; TEMP 98; O2SAT 96
[2023-10-20 20:00] VITALS: BP 141/65; TEMP 98.2; O2SAT 94
[2023-10-21 06:00] VITALS: BP 177/54; TEMP 98; O2SAT 95
[2023-10-21 07:32] VITALS: BP 148/67
[2023-10-21 16:53] VITALS: BP 189/82; TEMP 97.6; O2SAT 97
[2023-10-21] MEDS ORDERED: MIRALAX 17 GM POWD.PACK PO PRN (17:15)
[2023-10-21] MEDS ORDERED: ACETAMINOPHEN 325 MG TABLET PO PRN (17:15)
[2023-10-21 17:32] LABS: BASOPHILS # (AUTO) 0.1 K/UL (0.0-0.2); BASOPHILS % (AUTO) 0.7 % (0.0-2.0); EOSINOPHILS # (AUTO) 0.3 K/uL (0.0-0.7); EOSINOPHILS % (AUTO) 4.8 % (0.0-7.0); HEMATOCRIT 42.6 % (36.7-47.1); HEMOGLOBIN 14.2 g/dL (12.5-16.3); LYMPHOCYTES # (AUTO) 1.7 K/uL (0.8-4.8); LYMPHOCYTES % (AUTO) 23.4 % (20.5-51.5); MEAN CORPUSCULAR HEMOGLOBIN 29.8 uug (23.8-33.4); MEAN CORPUSCULAR HGB CONC 33 g/dL (32.5-36.3); MEAN CORPUSCULAR VOLUME 89.1 fL (73.0-96.2); MONOCYTES # (AUTO) 0.6 K/uL (0.1-1.30); NEUTROPHILS # (AUTO) 4.4 K/uL (1.8-8.9); NEUTROPHILS % (AUTO) 62.1 % (38.5-71.5); PLATELET COUNT (AUTO) 363 K/uL (152-348); RED BLOOD CELL COUNT(AUTO) 4.78 MIL/uL (4.06-5.63); RED CELL DISTRIBUTION WIDTH 14.6 % (12.1-16.2); WHITE BLOOD COUNT (AUTO) 7.1 K/uL (3.6-10.2)
[2023-10-21 17:46] LABS: ALANINE AMINOTRANSFERASE 38 U/L (16-63); ALBUMIN 3.3 g/dL (3.4-5.0); ALKALINE PHOSPHATASE 106 U/L (50-136); ASPARTATE AMINOTRANSFERASE 14 U/L (15-37); BILIRUBIN,TOTAL 0.3 mg/dL (0.2-1.0); CALCIUM 9.1 mg/dL (8.5-10.1); CARBON DIOXIDE 27 mmol/L (21-32); CHLORIDE 98 mmol/L (98-107); GLUCOSE 195 mg/dL (74-106); MAGNESIUM 2.1 mg/dL (1.8-2.4); PHOSPHOROUS 2.9 mg/dL (2.5-4.9); POTASSIUM 3.9 mmol/L (3.5-5.1); SODIUM SERUM 134 mmol/L (136-145); TOTAL PROTEIN, SERUM 7.4 g/dL (6.4-8.2); UREA NITROGEN, BLOOD 21 mg/dL (7-18)
[2023-10-21 17:52] LABS: DIFFERENTIAL COMMENT 1
[2023-10-21] MEDS: DOCUSATE SODIUM 100 MG CAPSULE PO SCH (20:37)
[2023-10-21 20:43] VITALS: BP 101/59; TEMP 97.5; O2SAT 96
[2023-10-21] MEDS: METOPROLOL TARTRATE 25 MG TABLET PO SCH (21:00)
[2023-10-22 05:28] VITALS: BP 147/68; TEMP 97.8; O2SAT 96
[2023-10-22] MEDS: PANTOPRAZOLE SODIUM 40 MG TABLET.DR PO SCH (06:29)
[2023-10-22 15:53] VITALS: BP 140/41; TEMP 97.2; O2SAT 98
[2023-10-22 17:22] VITALS: BP 156/60; TEMP 97.5; O2SAT 97
[2023-10-22] MEDS: hydrALAZINE HCL 25 MG TABLET PO PRN (18:45)
[2023-10-22 22:09] VITALS: BP 143/71; TEMP 97.8; O2SAT 100
[2023-10-23 05:49] VITALS: BP 160/80; TEMP 98.2
[2023-10-23 16:00] VITALS: BP 111/57; TEMP 98.2; O2SAT 98
[2023-10-23 20:40] VITALS: BP 184/83; TEMP 98.4; O2SAT 94
[2023-10-24 04:00] VITALS: BP 122/66; TEMP 98.3; O2SAT 97
[2023-10-24 08:18] LABS: BASOPHILS % (AUTO) 0.7 % (0.0-2.0); EOSINOPHILS # (AUTO) 0.4 K/uL (0.0-0.7); EOSINOPHILS % (AUTO) 5.6 % (0.0-7.0); HEMATOCRIT 42.5 % (36.7-47.1); HEMOGLOBIN 14.7 g/dL (12.5-16.3); LYMPHOCYTES # (AUTO) 2.3 K/uL (0.8-4.8); LYMPHOCYTES % (AUTO) 32.7 % (20.5-51.5); MEAN CORPUSCULAR HEMOGLOBIN 30.5 uug (23.8-33.4); MEAN CORPUSCULAR HGB CONC 35 g/dL (32.5-36.3); MEAN CORPUSCULAR VOLUME 88.2 fL (73.0-96.2); MONOCYTES # (AUTO) 0.8 K/uL (0.1-1.30); MONOCYTES % (AUTO) 10.9 % (0.0-11.0); NEUTROPHILS # (AUTO) 3.5 K/uL (1.8-8.9); NEUTROPHILS % (AUTO) 50.1 % (38.5-71.5); PLATELET COUNT (AUTO) 340 K/uL (152-348); RED BLOOD CELL COUNT(AUTO) 4.82 MIL/uL (4.06-5.63); RED CELL DISTRIBUTION WIDTH 14.6 % (12.1-16.2); WHITE BLOOD COUNT (AUTO) 7.1 K/uL (3.6-10.2)
[2023-10-24 08:32] LABS: DIFFERENTIAL COMMENT 1
[2023-10-24 08:47] LABS: THYROID STIMULATING HORMONE 5.353 mIU/mL (0.358-3.740)
[2023-10-24 09:07] LABS: CARBON DIOXIDE 27 mmol/L (21-32); CHLORIDE 97 mmol/L (98-107); CHOLESTEROL 212 mg/dL (<200); CREATININE 0.8 mg/dL (0.6-1.3); GLUCOSE 111 mg/dL (74-106); HDL CHOLESTEROL 50 mg/dL (40-60); MAGNESIUM 2.1 mg/dL (1.8-2.4); POTASSIUM 3.5 mmol/L (3.5-5.1); SODIUM SERUM 132 mmol/L (136-145); TRIGLYCERIDES 128 MG/DL (30-150); UREA NITROGEN, BLOOD 19 mg/dL (7-18)
[2023-10-24 10:00] VITALS: BP 135/65; TEMP 97.6; O2SAT 97
[2023-10-24 16:14] VITALS: BP 122/54; TEMP 98; O2SAT 96
[2023-10-24 20:35] VITALS: BP 137/60; TEMP 97.9; O2SAT 95
[2023-10-25 04:46] VITALS: BP 119/66; TEMP 97.8; O2SAT 93
[2023-10-25 08:52] VITALS: BP 123/58; TEMP 97.8; O2SAT 96
[2023-10-25 11:50] VITALS: BP 121/49; TEMP 97.9; O2SAT 95
[2023-10-25 16:00] VITALS: BP 130/67; TEMP 98; O2SAT 99
[2023-10-25 20:00] VITALS: BP 130/63; TEMP 98.6; O2SAT 97
[2023-10-26 06:00] VITALS: BP 159/84; TEMP 97.5; O2SAT 98
[2023-10-26 11:49] VITALS: BP 112/55; TEMP 97.7; O2SAT 95
[2023-10-26 16:00] VITALS: BP 120/49; TEMP 98.1; O2SAT 98
[2023-10-26 21:31] VITALS: BP 128/62; TEMP 98.2; O2SAT 100
[2023-10-27 06:16] VITALS: BP 138/75; TEMP 98.2; O2SAT 100
[2023-10-27 08:19] VITALS: BP 121/59
[2023-10-27] MEDS: LOSARTAN POTASSIUM 50 MG TABLET PO SCH (08:19)
== END 2023-10-27 14:40 | disposition home health service (06) | DRG 57 ==
PROVIDERS: ADMIT Physical Medicine & Rehabilitation Pain Medicine; ATTEND Physical Medicine & Rehabilitation Pain Medicine
DX: G20.A1 Parkinson's disease without dyskinesia, without mention of fluctuations (principal); D68.59 Other primary thrombophilia; E44.0 Moderate protein-calorie malnutrition; E87.1 Hypo-osmolality and hyponatremia; E11.9 Type 2 diabetes mellitus without complications; E66.9 Obesity, unspecified; E86.0 Dehydration; E88.09 Other disorders of plasma-protein metabolism, not elsewhere classified; F02.80 Dementia in other diseases classified elsewhere, unspecified severity, without behavioral disturbance, psychotic disturbance, mood disturbance, and anxiety; I10 Essential (primary) hypertension; Z86.73 Personal history of transient ischemic attack (TIA), and cerebral infarction without residual deficits; K52.9 Noninfective gastroenteritis and colitis, unspecified; E03.9 Hypothyroidism, unspecified; Z79.899 Other long term (current) drug therapy; Z79.84 Long term (current) use of oral hypoglycemic drugs; R53.1 Weakness; Z87.19 Personal history of other diseases of the digestive system
CPT/HCPCS: 36415; 70450; 71045; 83735; 84100; 84443; 84484; 85025; 93005; 97535-GO-CO; A4663; J1815